=== PATIENT | female | born 1960 | race Caucasian/White ===

== ENCOUNTER 2019-07-06 10:44 | Emergency (ER) | payer BC, OTHER ==
[2019-07-06 10:57] VITALS: BP 155/105
--- NOTE | 2019-07-06 12:13 | UC ---
Cardiac HPI - HPI Summary HPI Summary: 58-year-old woman comes in with a chief complaint of left lower anterior lateral chest pain. Pain started about 5 weeks ago. Pain started when the patient and her had gotten a new mattress. No known specific trauma. Pain is worse with palpation of the ribs and also deep breaths. Denies any shortness of breath. No fevers no chills. No calf pain. Not a smoker. No history of DVT or pulmonary embolus. No rash. - History of Current Complaint Chief Complaint: UCGeneralIllness Stated Complaint: RIB PAIN Time Seen by Provider: 07/06/19 11:45 Pain Intensity: 5 - Allergy/Home Medications Allergies/Adverse Reactions: Allergies Allergy/AdvReac Type Severity Reaction Status Date / Time adhesive tape Allergy Rash Verified 07/06/19 10:58 neosprin Allergy Rash Uncoded 07/06/19 10:59 shampoo Allergy welts Uncoded 07/06/19 10:59 silvadene cream Allergy Rash Uncoded 07/06/19 10:59 Home Medications: Home Medications Cyclobenzaprine TAB* [Flexeril 10 MG TAB*] 10 mg PO TID PRN #15 tab MDD 3 [Rx] PMH/Surg Hx/FS Hx/Imm Hx Previously Healthy: Yes - Surgical History Surgical History: None - Family History Known Family History: Positive: Non-Contributory - Social History Alcohol Use: None Substance Use Type: None Smoking Status (MU): Never Smoked Tobacco Review of Systems All Other Systems Reviewed And Are Negative: Yes Constitutional: Positive: Negative Skin: Positive: Negative Eyes: Positive: Negative ENT: Positive: Negative Respiratory: Positive: Negative Cardiovascular: Positive: Chest Pain - see hpi Gastrointestinal: Positive: Negative Genitourinary: Positive: Negative Motor: Positive: Negative Neurovascular: Positive: Negative Musculoskeletal: Positive: Other: - see hpi Neurological/Mental Status: Positive: Negative Psychological: Positive: Negative Is Patient Immunocompromised?: No Physical Exam Triage Information Reviewed: Yes Appearance: Well-Appearing, Well-Nourished, Pain Distress - mild with palpation of left anterolateral chest wall Vital Signs: Initial Vital Signs Temp 98 F 07/06/19 10:54 Pulse 85 07/06/19 10:54 Resp 18 07/06/19 10:54 BP 155/105 07/06/19 10:54 Pulse Ox 100 07/06/19 10:54 Vital Signs Reviewed: Yes Eye Exam: Normal Eyes: Positive: Conjunctiva Clear Neck: Positive: Supple Respiratory: Positive: Lungs clear, Normal breath sounds, No respiratory distress, Other: - Tender to palpation of left lower anterolateral chest wall. Patient is tender on the bony prominences of the ribs. No rash. Cardiovascular: Positive: RRR Abdomen Description: Positive: Nontender, Soft Musculoskeletal: Positive: Strength Intact, ROM Intact, No Edema - No calf tenderness to palpation Neurological: Positive: Alert Psychological: Positive: Normal Response To Family, Age Appropriate Behavior Skin Exam: Normal - Assessment/Plan Course Of Treatment: Submarine Worker: Kit Galeano, ([id number]) White Metal Corrosion Proofer: ANTIONETTE (NUANCE) Report Date: 07/06/2019 12:24:00 Report Status: Final Start of Report Content ===== Patient Name: SHARYN AMEZQUITA Medical Record#: [id number] Ordering Physician: Mikhail James MD Acct.#: [id number] : 1960 Age: 58 Sex: F Location : [facility] Exam Date: 07/06/19 1101 ADM Status: REG ER Order Information: RIBS LT UNI W/PA CH MIN 3 VWS Accession Number: [id number] CPT: 76233 INDICATION: Pain at the lateral left ribs after "sleeping hard mattress COMPARISON: None. TECHNIQUE: 4 views of the 3 ribs were obtained. FINDINGS: No fracture or significant focal osseous abnormality is seen. No pneumothorax is apparent. Limited views demonstrate grossly clear lungs. IMPRESSION: No radiographically apparent displaced rib fracture or pneumothorax. If the patient 's symptoms persist, follow-up imaging is recommended. 07/06/19 1221 Dictated By: Kit Galeano MD Dictated Date/Time: 07/06/19 122 Transcribed Date/Time: 07/06/191219 Copy to: CC:Mikhail Chavez MD; Mikhail James MD Imaging - [facility] Imaging - [facility] Imaging - [facility] [address] [address] ph [phone]) ph ([phone]) ph ([phone]) End of Report Content === I discussed the x-ray report with the patient. Patient is tender to palpation on the ribs. Denies any shortness of breath she has no calf pain or calf tenderness. Not a smoker no prior history of DVT. No coagulation abnormality issues. We discussed the differential diagnosis of her pain to include potential for pulmonary embolus. I let them know to rule out a pulmonary embolus she would need to go to the emergency department. Plan at this time is for the patient to follow-up with primary care doctor this week for both the pain and her hypertension. Going to use topical lidocaine patch and take ibuprofen and Flexeril as needed if helpful. Discussed if anything worse with shortness of breath pain fevers feeling ill or any other concerns they should go directly to the emergency department. - Clinical Impression Provider Diagnosis: Left-sided chest pain, Elevated blood pressure reading Discharge ED - Sign-Out/Discharge Documenting (check all that apply): Patient Departure All imaging exams completed and their final reports reviewed: Yes - Discharge Plan Condition: Stable Disposition: HOME Prescriptions: Cyclobenzaprine TAB* [Flexeril 10 MG TAB*] 10 mg PO TID PRN #15 tab MDD 3 PRN Reason: Pain - Moderate Patient Education Materials: Chest Pain (ED), Chest Wall Pain (ED) Referrals: Mikhail Chavez MD [Primary Care Provider] - Additional Instructions: FOLLOW UP WITH YOUR DOCTOR THIS WEEK FOR YOUR PAIN AND ELEVATED BLOOD PRESSURE. Try a lidocaine patch. Take ibuprofen 600 mg every 6 hours as needed. GO TO THE EMERGENCY DEPARTMENT IF NOT IMPROVED OR WORSE; PAIN, SHORTNESS OF BREATH, FEVER, YOU FEEL ILL OR ANY QUESTIONS OR CONCERNS. - Billing Disposition and Condition Condition: STABLE Disposition: Home
== END 2019-07-06 13:02 | disposition home or self-care (01) ==
LOC: UCEAST 10:44
DX: R07.89 Other chest pain (principal); R03.0 Elevated blood-pressure reading, without diagnosis of hypertension; Z91.09 Other allergy status, other than to drugs and biological substances; Z88.8 Allergy status to other drugs, medicaments and biological substances; Z88.1 Allergy status to other antibiotic agents
CPT/HCPCS: 99202; G0463

== ENCOUNTER 2019-07-08 14:56 | Emergency (ER) | payer OTHER ==
[2019-07-08] MEDS ORDERED: Ketorolac INJ* 30 MG/ML 1 ML VIAL IM ONE (15:48)
--- NOTE | 2019-07-08 16:11 | ED ---
Shortness of Breath - HPI Summary HPI Summary: 58-year-old female presents with left rib pain for the past couple weeks. She states believes it started after she got a new mattress. She states she has noticed increase swelling to the area. Denies any bowel pain. no n/v. States it does hurt when she takes deep breath occasionally. States that was standing for a while and she felt like she was going to pass out from the pain. She also notes some swelling near her left wrist. denies any injury to the wrist. wrist is not painful. She states that she did flip her hair last week when she got it washed and felt more pain in the area. She states that it is a spasm type pain. - History of Current Complaint Chief Complaint: EDChestWallPain Time Seen by Provider: 07/08/19 15:31 - Allergy/Home Medications Allergies/Adverse Reactions: Allergies Allergy/AdvReac Type Severity Reaction Status Date / Time adhesive tape Allergy Rash Verified 07/08/19 14:59 neosprin Allergy Rash Uncoded 07/08/19 14:59 shampoo Allergy welts Uncoded 07/08/19 14:59 silvadene cream Allergy Rash Uncoded 07/08/19 14:59 Home Medications: Home Medications Cyclobenzaprine TAB* [Flexeril 10 MG TAB*] 10 mg PO TID PRN #15 tab MDD 3 [Rx] methylPREDNISolone [Medrol Dosepak 4 MG*] 4 mg PO .SEE RICH INSTRUCTION #1 packet 07/08/19 [Rx] PMH/Surg Hx/FS Hx/Imm Hx Endocrine/Hematology History: Denies: Hx Anticoagulant Therapy Respiratory History: Denies: Hx Asthma Infectious Disease History: No Infectious Disease History: Denies: Traveled Outside the [place] in Last 30 Days - Family History Known Family History: Positive: Non-Contributory - Social History Alcohol Use: None Substance Use Type: Reports: None Smoking Status (MU): Never Smoked Tobacco Review of Systems Negative: Fever Positive: Other - left rib pain. Negative: Chest Pain Positive: Shortness Of Breath. Negative: Cough All Other Systems Reviewed And Are Negative: Yes Physical Exam Triage Information Reviewed: Yes Vital Signs On Initial Exam: Initial Vitals Temp Pulse Resp BP Pulse Ox 98.9 F 82 16 172/114 97 07/08/19 14:59 07/08/19 14:59 07/08/19 14:59 07/08/19 14:59 07/08/19 14:59 Vital Signs Reviewed: Yes Appearance: Positive: Well-Appearing Skin: Positive: Warm, Dry Head/Face: Positive: Normal Head/Face Inspection Eyes: Positive: Normal, Conjunctiva Clear ENT: Positive: Pharynx normal Respiratory/Lung Sounds: Positive: Clear to Auscultation, Breath Sounds Present , Other - tenderness in left ribs, edema note to area Cardiovascular: Positive: Normal, RRR Abdomen Description: Positive: Nontender, Soft Bowel Sounds: Positive: Present Musculoskeletal: Positive: Normal Neurological: Positive: Normal Psychiatric: Positive: Normal Procedures - Sedation Patient Received Moderate/Deep Sedation with Procedure: No Diagnostics - Vital Signs Vital Signs Temp Pulse Resp BP Pulse Ox 07/08/19 14:59 98.9 F 82 16 172/114 97 - Laboratory Result Diagrams: 07/08/19 15:52 07/08/19 15:52 Lab Statement: Any lab studies that have been ordered have been reviewed, and results considered in the medical decision making process. - EKG No standard instances Cardiac Rate: NL EKG Rhythm: Sinus Rhythm Summary of EKG Findings: sinus rhythm Course/Dx - Course Course Of Treatment: 58-year-old female presents with left rib pain for the past couple weeks. She states believes it started after she got a new mattress. She states she has noticed increase swelling to the area. Denies any bowel pain. no n/v. States it does hurt when she takes deep breath occasionally. States that was standing for a while and she felt like she was going to pass out from the pain. She also notes some swelling near her left wrist. denies any injury to the wrist. wrist is not painful. She states that she did flip her hair last week when she got it washed and felt more pain in the area. She states that it is a spasm type pain. On exam has some swelling noted over left lower rib with tenderness area. lungs CTA. nontender abd. Had x-ray done a couple days ago that was negative. D-dimer is negative. bnp and wbc normal. EKG shows sinus rhythm. Discussed likely muscular. Patient states flexeril makes her tired. will try on some prednisone. told follow up with primary. Patient understands and agrees with plan. - Diagnoses Differential Diagnosis/HQI/PQRI: Positive: CHF, Chest Wall Pain, Pulmonary Embolism Provider Diagnoses: Rib pain on left side Discharge ED - Sign-Out/Discharge Documenting (check all that apply): Patient Departure - Discharge Plan Condition: Good Disposition: HOME Prescriptions: methylPREDNISolone [Medrol Dosepak 4 MG*] 4 mg PO .SEE RICH INSTRUCTION #1 packet Referrals: Mikhail Chavez MD [Primary Care Provider] - Additional Instructions: Follow directions on package for Medrol pack Use ibuprofen or Tylenol for pain every 6 hours ice/heat area, move as much as possible Follow up with primary within 5 days Return to ED if develop any new or worsening symptoms - Billing Disposition and Condition Condition: GOOD Disposition: Home - Attestation Statements Provider Attestation: I was available for consult. This patient was seen by the [facility]. The patient was not presented to, seen by, or examined by me. -Sagrario
[2019-07-08 16:12] LABS: ABS Basophils 0.1 10^3/ul (0-0.2); ABS Eosinophils 0.3 10^3/ul (0-0.6); ABS Lymphocytes 3.2 10^3/ul (1.0-4.8); ABS Monocytes 0.7 10^3/ul (0-0.8); ABS Neutrophils 3.2 10^3/ul (1.5-7.7); Eosinophil % 3.8 %; Hematocrit 41 % (35-47); Hemoglobin 14.6 g/dL (12.0-16.0); Lymphocyte % 42.9 %; Mean Corpuscular HGB Conc 35 g/dL (31-36); Mean Corpuscular Hemoglobin 33 pg (27-31); Mean Corpuscular Volume 94 fL (80-97); Mean Platelet Volume 8.2 fL (7.4-10.4); Platelet Count 373 10^3/uL (150-450); Red Blood Count 4.38 10^6 /uL (3.70-4.87); Red Cell Distribution Width 13 % (10-15); White Blood Count 7.5 10^3/uL (3.5-10.8)
[2019-07-08 16:49] LABS: Albumin 4.9 g/dL (3.2-5.2); Albumin/Globulin Ratio 1.8 (1-3); BUN/Creatinine Ratio 18.9 (8-20); EGFR African American 77.3 (>60); EGFR Non-African American 63.9 (>60); Globulin 2.8 g/dL (2-4); Potassium 4.1 mmol/L (3.5-5.0); Total Bilirubin 0.3 mg/dL (0.2-1.0); Total Protein 7.7 g/dL (6.4-8.9)
[2019-07-08 17:26] VITALS: BP 147/93
== END 2019-07-08 17:24 | disposition home or self-care (01) ==
LOC: ED 14:56
DX: R07.81 Pleurodynia (principal); R07.1 Chest pain on breathing; Z88.3 Allergy status to other anti-infective agents; Z91.048 Other nonmedicinal substance allergy status
CPT/HCPCS: 36415; 80053; 83880; 85025; 85379; 93005; 99282; J1885